=== PATIENT | male | born 1985 | race Caucasian/White ===

== ENCOUNTER → 2021-06-23 | Outpatient (CLI) | payer OTHER ==
--- NOTE | 2021-06-23 21:23 | XR ---
EXAMINATION TYPE: XR KUB DATE OF EXAM: 06/23/2021 4:09 PM CLINICAL HISTORY: Flank pain for 3 days. TECHNIQUE: Two Upright KUB images of the abdomen are obtained. COMPARISON: None. FINDINGS: Gas seen in nondistended stomach. Scattered gas is seen in non-distended small bowel loops. Gas and fecal material is seen in non-distended colon along the periphery. Occasional scattered calc ified pelvic phlebolith. No free air. Lung bases are clear. Osseous structures are intact. IMPRESSION: Overall nonobstructive bowel gas pattern.
--- NOTE | 2021-06-23 21:26 | XR ---
EXAMINATION TYPE: XR thoracic spine 2V DATE OF EXAM: 06/23/2021 CLINICAL HISTORY: Mid back and flank pain for 3 days. TECHNIQUE: Frontal, lateral, and swimmer's view of thoracic spine are obtained. COMPARISON: None. FINDINGS: Thoracic spine show satisfactory alignment without evidence of acute fracture or dislocatio n. Vertebral body heights and disc space heights are preserved. Visualized ribs are intact bilateral ly. IMPRESSION: Unremarkable study.
== END | disposition home or self-care (01) ==
LOC: RADXRMAIN 15:52
PROVIDERS: ATTEND Family Medicine
DX: R10.32 Left lower quadrant pain (principal); M54.9 Dorsalgia, unspecified
CPT/HCPCS: 72070; 74018

== ENCOUNTER → 2023-07-30 | Outpatient (CLI) | payer BC ==
--- NOTE | 2023-07-30 16:39 | XR ---
EXAMINATION TYPE: XR foot complete RT DATE OF EXAM: 07/30/2023 CLINICAL HISTORY: pain TECHNIQUE: Frontal, lateral and oblique images of the left foot are obtained. COMPARISON: None. FINDINGS: There is no acute fracture/dislocation evident. The joint spaces appear within normal dior its. The overlying soft tissue appears unremarkable. IMPRESSION: There is no acute fracture or dislocation. ICD 10 NO FRACTURE, INITIAL EVALUATION
== END | disposition home or self-care (01) ==
LOC: RADXRMAIN 15:42
PROVIDERS: ATTEND Family Medicine
DX: M79.671 Pain in right foot (principal)